=== PATIENT | female | born 1985 | race Caucasian/White ===

== ENCOUNTER → 2023-04-12 08:18 | Outpatient (BNVA) | payer MEDICAID, SELFPAY | PROVIDERS: Family Provider Family Medicine; PCP Family Medicine; Referring Provider Nurse Practitioner Family; Visit Provider Specialist | DX: G43.711 Chronic migraine without aura, intractable, with status migrainosus; G24.4 Idiopathic orofacial dystonia; R56.9 Unspecified convulsions; F15.91 Other stimulant use, unspecified, in remission | CPT/HCPCS: 99205 ==

== ENCOUNTER 2023-09-17 12:51 | Outpatient (CLI) | payer OTHER, SELFPAY ==
--- NOTE | 2023-09-17 13:00 | MR_ITS ---
WS: [id number] MRA ANGIOGRAPHY [place] OF [place] HISTORY: R51.9 - Headache, unspecified COMPARISON: None available. TECHNIQUE: 3-D MR angiography is performed of the [place]. All images are reviewed including source images. Very small caliber distal RIGHT vertebral artery is hypoplastic. Small caliber but patent LEFT verteb ral artery. The basilar artery is also small caliber but there is no luminal irregularity or stenosis . No beading. Robust bilateral posterior communicating arteries. Normal posterior cerebral arteries. Intracranial portion of the internal carotid arteries are normal course and caliber. No significant a therosclerosis, stenosis or aneurysm identified. Middle and anterior cerebral arteries are both paten t with no significant disease. Redundant overlapping supraclinoid portion of the carotid arteries. An terior communicating artery is also normal. IMPRESSION: 1. Very small caliber, hypoplastic distal RIGHT vertebral artery. 2. Small caliber basilar artery but no evidence for beading or vasculitis. 3. No aneurysms identified. Redundant overlapping supraclinoid carotid arteries bilaterally. Mild li mitation evaluation for small aneurysms. CT angiogram may be of benefit for better evaluation.
--- NOTE | 2023-09-17 13:15 | MR_ITS ---
WS: [id number] MRI BRAIN WITHOUT CONTRAST HISTORY: G44.83 - Primary cough headache COMPARISON: None available. TECHNIQUE: Diffusion imaging, multiplanar T1, T2 and FLAIR imaging obtained. No evidence for acute infarct or hemorrhage. Cat-white matter differentiation is normal. There are a few tiny foci of increased T2 and FLAIR signal in the posterior RIGHT frontal lobe cortex . These are very nonspecific with no adjacent edema or mass effect. No prior infarct. Ventricles and extra-axial spaces are normal. Inferior displacement of the cerebellar tonsils below the foramen magnum by 11.2 mm consistent with a Chiari I malformation. There is crowding of the foramen magnum and pegging of the cerebellar tonsils . Dural venous sinuses and [place] of [place] demonstrate no abnormality on this unenhanced studies. Paranasal sinuses: Clear. Mastoid air cells: Normal. Calvarium and scalp: Intact. IMPRESSION: 1. Chiari I malformation. 2. No acute infarct or hemorrhage. 3. Very minimal T2 and FLAIR signal foci in the posterior RIGHT frontal lobe cortex. Nonspecific in this age group. May be related to small vessel ischemic disease, hypertension, migraines or smoking h istory.
== END 2023-09-17 12:52 | disposition home or self-care (01) ==
LOC: RAD 12:51
PROVIDERS: Family Provider Family Medicine; PCP Family Medicine; Visit Provider Specialist
DX: G44.83 Primary cough headache (principal); G93.5 Compression of brain; Q28.1 Other malformations of precerebral vessels
CPT/HCPCS: 70544; 70551

== ENCOUNTER 2023-09-27 13:03 | Outpatient (CLI) | payer OTHER, SELFPAY ==
[2023-09-27] MEDS: iohexol 350 mg/mL 500 mL Btl (per mL) IV (13:27)
--- NOTE | 2023-09-27 13:30 | CT_ITS ---
WS: [id number] CT ANGIOGRAM CEREBRAL ARTERIES HISTORY: G93.5 - Compression of brain TECHNIQUE: Pre and postcontrast imaging through the brain. CT angiogram is performed of the cerebral arteries. During arterial injection imaging is obtained from the skull vertex to the skull base in 1. 25 mm imaging. Coronal and sagittal reformats are submitted. Additional multi planar reformats of the cerebral arteries are submitted, MIP imaging also reviewed. All CT scans at [facility] use at least one of these dose optimization techniques: automated exposure control; mA and/or kV adjustme nt per patient size (includes targeted exams where dose is matched to clinical indication); or iterat belkis reconstruction. CONTRAST: Omnipaque 350; 100 mL IV. DLP: 1770.09 mGy.cm COMPARISON: MR angiogram 09/17/2023 Identified is the Chiari I malformation. Cerebellar tonsils are extending 1.2 cm below the foramen ma gnum. There is no hydrocephalus. Fourth ventricle is normal size. No intracranial hemorrhage. Intracranial vertebral arteries: Small caliber distal RIGHT vertebral artery but it is patent. Normal LEFT vertebral artery. Basilar artery: No significant stenosis or occlusion. No aneurysm. Intracranial Internal carotid arteries: Demonstrates no significant stenosis or plaque. Normal appear ance of the intracranial carotid arteries. No aneurysms are identified through the cavernous sinuses. Middle cerebral arteries: Normal. Anterior cerebral arteries and ACOM: Normal. Posterior cerebral arteries and PCOM's: Normal. Dural venous sinuses are normally enhancing. Mastoid air cells: Normal. Paranasal sinuses: Normal. Calvarium: Normal. IMPRESSION: 1. No intracranial cerebral artery aneurysms. By CT angiogram the distal carotid arteries are well v isualized. 2. Small caliber distal RIGHT vertebral artery. 3. Reidentified is the Chiari I malformation.
== END 2023-09-27 13:04 | disposition home or self-care (01) ==
LOC: RAD 13:04
PROVIDERS: Family Provider Family Medicine; PCP Family Medicine; Visit Provider Specialist
DX: G93.5 Compression of brain (principal); G44.83 Primary cough headache
CPT/HCPCS: 70496; Q9967

== ENCOUNTER 2023-10-16 13:28 | Outpatient (CLI) | payer OTHER, SELFPAY ==
--- NOTE | 2023-10-16 13:45 | MR_ITS ---
WS: [id number] MRI CERVICAL SPINE NONCONTRAST HISTORY: G93.5 - Compression of brain COMPARISON: MRI head 09/17/2023 Technique: Multiplanar, multisequence noncontrast imaging of the cervical spine. Straightening and slight reversal of the normal cervical lordosis. Reversal centered at C4-5. Motion artifact on nearly all sequences. Reidentified is a small posterior fossa with inferior displacement of the cerebellar tonsils by 9 mm below the foramen magnum. There is mild pegging of the cerebellar tonsils. Fourth ventricle appears t o be normal size. No syrinx is identified. C2-C3: Normal. C3-C4: Normal. C4-C5: Tiny central disc protrusion. Mild encroachment upon the ventral thecal sac and central stenos is. C5-C6: Shallow central disc protrusion. Near complete effacement of CSF. No high-grade stenosis. C6-C7: Normal. C7-T1: Normal. Paraspinal soft tissue are normal. IMPRESSION: 1. Chiari I malformation. Cerebellar tonsils extend 9 mm beyond the foramen magnum. 2. No cervical syrinx. 3. Small central disc protrusions at C4-5 and C5-6. No high-grade central or foraminal stenosis.
== END 2023-10-16 13:29 | disposition home or self-care (01) ==
PROVIDERS: Family Provider Family Medicine; PCP Family Medicine; Visit Provider Specialist
DX: G93.5 Compression of brain (principal); M50.222 Other cervical disc displacement at C5-C6 level
CPT/HCPCS: 72141

== ENCOUNTER 2024-03-09 22:35 | Emergency (ER) | payer OTHER, SELFPAY ==
[2024-03-09 23:00] VITALS: BP 135/81; PULSE 99; RESP 16; TEMP 37.1; O2SAT 99; BMI 25.0
--- NOTE | 2024-03-10 01:58 | W.ED.HA ---
HPI - Headache General: Chief Complaint: Headache Stated Complaint: Head ache\Cant Balance Time Seen by Provider: 03/10/24 01:49 History of Present Illness: Patient presents to the ER with complaints of headache times last couple days. Patient says she has Chiari malformation and this is her typical headache is worse. Patient states her right vision in her eye is affected she feels like her lips are tingling. Has been worsening since Saturday. Patient used to be on the Emgality shot that used to work very good but she has not been on it for a while. She is try to get back on it. Otherwise no other complaints. Review of Systems General: Reports: 10 or more systems reviewed and unremarkable except in HPI and below PFSH ED PFSH: Social History Smoking and tobacco/nicotine status: current every day tobacco/nicotine user Physical Exam Const: COMMON NORMALS: no acute distress, average body habitus, patient oriented x3, no limitations, healthy appearing, alert and well nourished HENMT: COMMON NORMALS: normocephalic, atraumatic, hearing grossly normal bilaterally, external ears normal, Normal external nose present and moist oral mucous membranes HEAD & SCALP: normocephalic and atraumatic NOSE: Normal external nose present EXTERNAL EAR: Yes external ears normal Eye: COMMON NORMALS: Equal, round and reactive pupils present, EOMs intact bilaterally, conjunctivae normal and no scleral icterus CONJUNCTIVA: Yes conjunctivae normal PUPIL: Yes Equal, round and reactive pupils present Neck/C-Spine: COMMON NORMALS: full ROM, no lymphadenopathy, supple, no meningeal signs, no JVD and Thyroid normal THYROID: Thyroid normal Chest: COMMONS NORMALS: normal inspection of the chest and normal palpation of entire chest wall Resp: COMMON NORMALS: normal respiratory effort, No retractions, No use of accessory muscles and clear to auscultation bilaterally AUSCULTATION: clear to auscultation bilaterally Cardio: COMMON NORMALS: no JVD, regular rate, regular rhythm, S1 normal heart sound present, S2 normal heart sound present, No gallops present (Cardio), No clicks present (Cardio), No murmurs present (Cardio) and No rub (Cardio) RATE: regular rate RHYTHM: regular rhythm HEART SOUNDS: S1 normal heart sound present and S2 normal heart sound present GI: COMMON NORMALS: Normal to inspection, nondistended, normoactive bowel sounds present, Soft to palpation, non-tender, No hepatosplenomegaly present and no masses PALPATION: Yes Soft to palpation and Yes No hepatosplenomegaly present Neuro: COMMON NORMALS: patient oriented x3 SENSORIUM/ORIENTATION: Yes alert MENINGEAL SIGNS: Yes no meningeal signs Course Vital Signs: Vital signs: Vital Signs Temperature 98.7 F 03/09/24 23:00 Pulse Rate 49 L 03/10/24 03:30 Respiratory Rate 16 03/10/24 03:30 Blood Pressure 98/59 03/10/24 03:30 Pulse Oximetry 95 03/10/24 03:30 MDM - Headache Medical Decision Making Patient has a headache and she also has Chiari malformation. Patient was given multiple doses of medicine in ER to calm her pain. Patient be discharged home. This is the same pain that patient normally gets except more intense. Patient should follow-up with her PCP. Differential Diagnosis Likely migraine, tension headache and headache Medical Records I reviewed the patient's medical records. Lab Data I reviewed the patient's lab results. No radiology studies performed this visit Discharge Plan Discharge Patient Disposition: Home Clinical Impression: Chiari I malformation Headache Qualifiers: Headache type: unspecified Headache chronicity pattern: acute headache Intractability: not intractable Qualified Code(s): R51.9 - Headache, unspecified Condition: Stable Prescriptions: No Action prednisone 10 mg tablet 10 mg PO QID Qty: 4 0RF Rx Instructions: take with 50 mg benadryl prior to cta Emgality Syringe 120 mg/mL syringe 240 mg SUBCUT ONCE Qty: 2 0RF Rx Instructions: for chronic migraine metoprolol succinate 25 mg tablet extended release 24 hr 12.5 mg PO DAILY Emgality Syringe 120 mg/mL syringe 120 mg SUBCUT ONCE Qty: 1 5RF Rx Instructions: after the first month prednisone 50 mg tablet 50 mg PO DAILY Qty: 2 0RF Rx Instructions: Take one tablet at 7AM and second tablet at noon with 50mg of benedryl Discharge Orders: Discharge ED (Routine); Ordered 03/10/24 Ordered By: Leighton Espinoza Referrals: Mini Vickers MD [Primary Care Provider] - 1 week Patient Instructions: Chiari Malformation (DC), Acute Headache (DC) Activity Restrictions/Additional Instructions: Follow-up with your family practice physician and/or neurologist for further evaluation and treatment of your Chiari malformation and headaches. If your pain returns or worsens please feel free to return to the ER. Coding Level of Care Code ED Customer Experience Intern for Jovon Espinoza
[2024-03-10] MEDS: sodium chloride 0.9% 1,000 ML 999 ML IV (02:07)
[2024-03-10] MEDS: metoclopramide 5 mg/mL SDV 2 mL 10 MG IVP (02:12)
[2024-03-10] MEDS: morphine 4 mg/mL SDV 1 mL IVP ×2 (02:12→03:36)
[2024-03-10] MEDS: diphenhydrAMINE 50 mg/mL SDV 1mL IVP (02:12)
[2024-03-10] MEDS: dexamethasone 10 mg/mL INJ IVP (02:12)
[2024-03-10 02:14] VITALS: BP 119/75; PULSE 62; RESP 16; O2SAT 99
[2024-03-10 02:30] VITALS: BP 126/66; PULSE 50; RESP 16; O2SAT 98
[2024-03-10 03:09] VITALS: BP 95/47; PULSE 48; RESP 16; O2SAT 96
[2024-03-10 03:30] VITALS: BP 98/59; PULSE 49; RESP 16; O2SAT 95
[2024-03-10 04:02] VITALS: BP 97/50; PULSE 48; RESP 14; O2SAT 95
== END 2024-03-10 04:09 | disposition home or self-care (01) ==
PROVIDERS: Emergency Provider Emergency Medicine; PCP Family Medicine
DX: G93.5 Compression of brain (principal); R51.9 Headache, unspecified; Z72.0 Tobacco use
CPT/HCPCS: 96361; 96374; 96375; 96376; 99284; J1100; J1200; J2270; J2765; J7030